=== PATIENT | female | born 1990 | race Caucasian/White ===

== ENCOUNTER → 2020-07-07 | Outpatient (CLI) | payer OTHER ==
[2020-07-07 10:54] VITALS: BP 146/70
--- NOTE | 2020-07-07 10:54 | ER RDC ASSESSMENT REPORT ---
Intake - In the Last 14 days Have you traveled outside [place]?: No Have you been in close contact with someone CONFIRMED: Yes Worked in Healthcare?: No - Symptoms Subjective Fever([place] feverish): Yes Chills: Yes Muscule Aches: Yes Runny Nose: Yes Sore Throat: Yes Cough (New or worsening chronic cough): Yes Shortness of breath: No Nausea or Vomiting: No Headache: Yes Abdominal Pain: No Diarrhea(3 or more loose stools in last 24 hours): Yes - Do you have any of the following Chronic lung disease: Asthma or emphysema or COPD: Yes Chronic Lung Disease Comment: History of asthma Cystic Fibrosis: No Diabetes: No High Blood Pressure: No Cardiovascular Disease: No Chronic Kidney Disease: No Chronic Liver Disease: No Chronic blood disorder like Sickle Cell Disease: No Weak immune system due to disease or medication: No Neurologic condition that limits movement: No Developmental delay - Moderate to Severe: No Recent (within past 2 weeks) or current : No Morbid Obesity (>100 pounds over ideal weight): No Obesity Comment: Height 5 feet 6 inches weight 163 pounds - Objective Temperature: 98.0 F Pulse Rate: 87 Respiratory Rate: 18 Blood Pressure: 146/70 O2 Sat by Pulse Oximetry: 98 Objective: Given above, testing performed: If Testing Performed: Test Specimen Type Sent to General - General Information source: Patient Notes: Patient here at [facility] for cover testing patient reports had been to the hairdresser for period of hours with no mask last week was contacted by the hairdresser on that she had tested positive patient developed symptoms yesterday and last night which included a low-grade temperature 99.6 chills muscle aches runny nose sore throat cough and headache she reports also having diarrhea and loss of appetite. Patient does not have a local PCP at this time. Past Medical History - General Information source: Patient - Social History Smoking Status: Never Smoker Family History: None Physical Exam - General General appearance: Appears well, Alert In distress: None Notes: PHYSICAL EXAMINATION: GENERAL: Well-appearing and in no acute distress. HEAD: Atraumatic, normocephalic. EYES: sclera anicteric, conjunctiva are normal. ENT: nares patent. Moist mucous membranes. NECK: Normal range of motion, supple without lymphadenopathy LUNGS: CTAB and equal. No wheezes rales or rhonchi. Patient even and unlabored lung sounds clear. HEART: Regular rate and rhythm without murmurs ABDOMEN: Soft, nontender, normal bowel sounds, no guarding. EXTREMITIES: Normal range of motion, no pitting edema. No cyanosis. NEUROLOGICAL: Cranial nerves grossly intact. Normal speech. Normal gait. PSYCH: Normal mood, normal affect. SKIN: Warm, Dry, normal turgor, no rashes or lesions noted Diagnostic Results Laboratory Results: Patient informed of negative rapid strep and negative rapid flu results. Pending strep culture. Pending covid testing results. Patient provided instructions regarding coverage to include: As a person under investigation for Covid 19, the [facility], division of public health advises you to adhere to the following guidance until your test results are reported to you. If your test result is positive, you will receive additional information from your provider and your local health department at that time. Remain at home until you are cleared by the health provider or public health authorities. Keep a log of visitors to your home, notify any visitors to your home of your isolation status. If you plan to move to a new address or leave the county, notify the local health department in your County. Call your doctor or seek care if you have an urgent medical need. Before seeking medical care, call ahead to get instructions from the provider before arriving at the medical office clinic or hospital. Notify them that you are being tested for the virus that causes Covid 19 so that arrangements can be made, as necessary, to prevent transmission to others in the healthcare setting. Next, notify the local health department in your county. If a medical emergency arises and you need to call 911, inform the first responders that you are being tested for the virus that causes Covid 19. Next, notify the local health department in your county. Patient Education/Counseling Counseling/Education: Patient presents with upper respiratory symptoms worrisome for possible Covid 19. Patient does not have emergency worring symptoms such as difficulty breathing, shortness of breath, chest pain, pressure, confusion or cyanosis. Patient appears suitable for discharge. Patient instructed to follow up with Urgent Care or ED for persistent or worsening symptoms. Patient's vital signs are stable and patient is nontoxic in appearance. Good return precautions have been discussed with patient, patient verbalized understanding and is agreeable with discharge plan of care at this time. C Discharge - Discharge Condition: Stable Disposition: Home; Selfcare
[2020-07-07 11:39] LABS: A TYPE INFLUENZA AG NEGATIVE (NEGATIVE); B INFLUENZA AG NEGATIVE (NEGATIVE)
== END ==
LOC: RDC 10:17
PROVIDERS: ATTEND Nurse Practitioner Family
DX: Z20.828 Contact with and (suspected) exposure to other viral communicable diseases (principal); R50.9 Fever, unspecified; R05 Cough; J02.9 Acute pharyngitis, unspecified; R09.89 Other specified symptoms and signs involving the circulatory and respiratory systems; M79.10 Myalgia, unspecified site; R19.7 Diarrhea, unspecified; J45.909 Unspecified asthma, uncomplicated
CPT/HCPCS: 87070; 87880; 87635; 87804; C9803; 99201

== ENCOUNTER 2020-10-29 09:46 | Emergency (ER) | payer OTHER ==
--- NOTE | 2020-10-29 10:15 | ER Document Report ---
ED Medical Screen (RME) - General Chief Complaint: Bloody Stools Stated Complaint: BLOOD IN STOOL Time Seen by Provider: 10/29/20 10:12 Primary Care Provider: SHIRLENE HEATON [Primary Care Provider] - Follow up as needed Notes: Patient is a 30-year-old female who presents emergency department with a chief complaint of lightheadedness and rectal bleeding. Patient reports 2 days ago she had a migraine, this was the first in her lifetime. Patient reports that it gradually got better. 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 Patient reports this was very brief. Patient reports this morning she began to feel lightheaded once again. Patient was concerned about her symptoms and went to go get rapid Covid testing this morning. Patient states while she was at the facility she went to the restroom to have a bowel movement, states that the bowel movement was soft in nature and noted a large amount of blood and blood clots. Patient is not on blood thinners. Patient denied pain with bowel movement. Patient does report some lower abdominal cramping. - Related Data Allergies/Adverse Reactions: amoxicillin Allergy (Verified 10/29/20 10:13) erythromycin base Allergy (Verified 10/29/20 10:13) Penicillins Allergy (Verified 10/29/20 10:13) Past Medical History - Immunizations Hx Diphtheria, Pertussis, Tetanus Vaccination: Yes Physical Exam - Vital signs Vitals: Temp Pulse Resp BP Pulse Ox 97.7 F 68 16 124/70 100 10/29/20 09:49 10/29/20 09:49 10/29/20 09:49 10/29/20 09:49 10/29/20 09:49 Course - Re-evaluation Re-evalutation: 10/29/20 10:14 Patient no acute distress in triage, patient denies headache at this time, patient is alert and oriented x4. We will obtain basic labs, and EKG analysis including a hCG. I have greeted and performed a rapid initial assessment of this patient. A comprehensive ED assessment and evaluation of the patient, analysis of test results and completion of the medical decision making process will be conducted by additional ED providers. - Vital Signs Vital signs: Temp Pulse Resp BP Pulse Ox 97.7 F 68 16 124/70 100 10/29/20 09:49 10/29/20 09:49 10/29/20 09:49 10/29/20 09:49 10/29/20 09:49 Doctor's Discharge - Discharge Referrals: FLORINA,NO [Primary Care Provider] - Follow up as needed
[2020-10-29 10:46] LABS: ABSOLUTE EOSINOPHILS # (AUTO) 0.1 10^3/uL (0.0-0.6); ABSOLUTE LYMPHOCYTES (AUTO) 2.6 10^3/uL (0.5-4.7); ABSOLUTE MONOCYTES (AUTO) 0.5 10^3/uL (0.1-1.4); ABSOLUTE NEUT (AUTO) 3.2 10^3/uL (1.7-8.2); BASOPHILS % (AUTO) 0.3 % (0-2); EOSINOPHILS % (AUTO) 1.3 % (0-6); HEMATOCRIT 39.6 % (36.0-47.0); HEMOGLOBIN 14.1 g/dL (12.0-15.5); LYMPHOCYTES % (AUTO) 40.5 % (13-45); MEAN CORPUSCULAR HEMOGLOBIN 31.6 pg (27.0-33.4); MEAN CORPUSCULAR HGB CONC 35.6 g/dL (32.0-36.0); MEAN CORPUSCULAR VOLUME 89 fl (80-97); MONOCYTES % (AUTO) 7.6 % (3-13); PLATELET COUNT 248 10^3/uL (150-450); RED BLOOD COUNT 4.47 10^6/uL (3.72-5.28); RED CELL DISTRIBUTION WIDTH 12.6 % (11.5-14.0); SEGMENTED NEUTROPHILS % (AUTO) 50.3 % (42-78); TOTAL CELLS COUNTED % (AUTO) 100 %; WHITE BLOOD COUNT 6.5 10^3/uL (4.0-10.5)
[2020-10-29 10:54] LABS: APPEARANCE,URINE SLIGHTLY-CLOUDY; BILIRUBIN,URINE NEGATIVE (NEGATIVE); COLOR,URINE YELLOW; GLUCOSE, URINE NEGATIVE (NEGATIVE); KETONES,URINE NEGATIVE (NEGATIVE); LEUKOCYTE ESTERASE,URINE TRACE (NEGATIVE); NITRITE,URINE NEGATIVE (NEGATIVE); PROTEIN,URINE NEGATIVE (NEGATIVE); URINE SPECIFIC GRAVITY 1.019; UROBILINOGEN,URINE NEGATIVE mg/dL (<2.0)
[2020-10-29 11:11] LABS: ALBUMIN 4.7 g/dL (3.5-5.0); ALKALINE PHOSPHATASE 65 U/L (38-126); ANION GAP 7 (5-19); ASPARTATE AMINO TRANSFERASE 37 U/L (14-36); BILIRUBIN,DIRECT 0.1 mg/dL (0.0-0.4); BILIRUBIN,TOTAL 0.6 mg/dL (0.2-1.3); BLOOD UREA NITROGEN 19 mg/dL (7-20); CALCIUM 9.8 mg/dL (8.4-10.2); CARBON DIOXIDE 31 mmol/L (22-30); CHLORIDE 101 mmol/L (98-107); GLUCOSE 105 mg/dL (75-110); POTASSIUM 4.2 mmol/L (3.6-5.0)
--- NOTE | 2020-10-29 11:50 | ER Document Report ---
ED Dizziness/Weakness - General Chief Complaint: Syncope Stated Complaint: BLOOD IN STOOL Time Seen by Provider: 10/29/20 10:12 Primary Care Provider: SHIRLENE HEATON [Primary Care Provider] - Follow up as needed Mode of Arrival: Ambulatory Information source: Patient - [facility] Notes: Patient presents complaining of lightheadedness and dizziness. She also states she had a syncopal episode yesterday and that she noticed bright red blood in her stool this morning. 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 Patient denies any chronic medical conditions or any chronic medications. She denies any previous surgerie s. No previous history of anemia. Patient states that she has had normal menstrual cycles. Patient states that she has had no chest pain or palpitations. She states she has felt short of breath with exertion over the last 1 to 2 days. She states she has had one episode of bright red blood per r ectum and that was this morning. She denies any rectal pain or previous history of similar problems. - Related Data Allergies/Adverse Reactions: amoxicillin Allergy (Verified 10/29/20 10:13) erythromycin base Allergy (Verified 10/29/20 10:13) Penicillins Allergy (Verified 10/29/20 10:13) Past Medical History - General Information source: Patient - Social History Smoking Status: Never Smoker Frequency of alcohol use: None Drug Abuse: None Family History: None - Immunizations Hx Diphtheria, Pertussis, Tetanus Vaccination: Yes Review of Systems - Review of Systems Constitutional: Weakness. denies: Chills, Fever Cardiovascular: denies: Chest pain, Palpitations Respiratory: Short of breath. denies: Cough -: Yes All other systems reviewed and negative Physical Exam - Vital signs Vitals: Temp Pulse Resp BP Pulse Ox 97.7 F 68 16 124/70 100 10/29/20 09:49 10/29/20 09:49 10/29/20 09:49 10/29/20 09:49 10/29/20 09:49 Interpretation: Normal - Notes Notes: Orthostatic vital signs were also normal. - General General appearance: Appears well, Alert - HEENT Head: Normocephalic, Atraumatic Eyes: Normal Pupils: PERRL - Respiratory Respiratory status: No respiratory distress Chest status: Nontender Breath sounds: Normal Chest palpation: Normal - Cardiovascular Rhythm: Regular Heart sounds: Normal auscultation Murmur: No - Abdominal Inspection: Normal Distension: No distension Bowel sounds: Normal Tenderness: Nontender Organomegaly: No organomegaly - Rectal Tenderness: No Stool: Heme positive, Bloody Hemorrhoids: None - Back Back: Normal, Nontender - Extremities General upper extremity: Normal inspection, Nontender, Normal color, Normal ROM, Normal temperature General lower extremity: Normal inspection, Nontender, Normal color, Normal ROM, Normal temperature, Normal weight bearing. No: Sydni's sign - Neurological Neuro grossly intact: Yes Cognition: Normal Orientation: AAOx4 [place] Coma Scale Eye Opening: Spontaneous [place] Coma Scale Verbal: Oriented [place] Coma Scale Motor: Obeys Commands [place] Coma Scale Total: 15 Speech: Normal Motor strength normal: LUE, RUE, LLE, RLE Sensory: Normal - Psychological Associated symptoms: Normal affect, Normal mood - Skin Skin Temperature: Warm Skin Moisture: Dry Skin Color: Normal Course - Re-evaluation Re-evalutation: 10/29/20 11:51 Patient presents with rectal bleeding and lightheadedness. No obvious cause of the syncopal and near syncopal episodes is present. She has normal vital signs. She has normal orthostatic vital signs as well. She has normal laboratory values. She also has a normal EKG. She does have bright red blood per rectum. I did call and discussed the case with Dr. Rudolph and he will see her in the office. - Vital Signs Vital signs: Temp Pulse Resp BP Pulse Ox 97.7 F 68 16 124/70 100 10/29/20 09:49 10/29/20 09:49 10/29/20 09:49 10/29/20 09:49 10/29/20 09:49 - Laboratory Results Result Diagrams: 10/29/20 10:30 10/29/20 10:30 Laboratory Results Interpreted: 10/29/20 10/29/20 10:30 10:30 Carbon Dioxide 31 H AST 37 H Ur Leukocyte Esterase TRACE H Urine Ascorbic Acid 40 H Critical Laboratory Results Reviewed: No Critical Results - Radiology Results Critical Radiology Results Reviewed: No Critical Results - EKG Interpretation by Nd EKG shows normal: Sinus rhythm Rate: Normal - 64 Rhythm: NSR [place]/QRS: No: Right axis deviation, Left axis deviation Discharge - Discharge Clinical Impression: Rectal bleeding, Syncope and collapse Condition: Stable Disposition: HOME, SELF-CARE Instructions: Rectal Bleeding, Unclear Cause ([facility]) Additional Instructions: Please call Dr. Rudolph as soon as possible to arrange follow-up Forms: Return to Work Referrals: JYO RUDOLPH MD [ACTIVE STAFF] - Follow up in 3-5 days
[2020-10-29 11:52] VITALS: BP 113/74
--- NOTE | 2020-10-29 12:30 | EKG REPORT ---
SEVERITY:- NORMAL ECG - SINUS RHYTHM : Confirmed by: Manuelito Jo MD 29-Oct-2020 12:30:16
== END 2020-10-29 12:08 | disposition home or self-care (01) ==
LOC: ER 09:46
DX: R55 Syncope and collapse (principal); K62.5 Hemorrhage of anus and rectum; R42 Dizziness and giddiness; R06.02 Shortness of breath; R53.1 Weakness; Z88.0 Allergy status to penicillin; Z88.1 Allergy status to other antibiotic agents
CPT/HCPCS: 36415; 80053; 81001; 81025; 85025; 93005; 93010; 99284